=== PATIENT | male | born 2000 | race Two or more races ===

== ENCOUNTER 2025-04-01 13:00 | Emergency (ER) | payer OTHER ==
[~2025-04-01] VITALS: Ht 180.3 cm; Wt 59.0 kg
[2025-04-01] MEDS ORDERED: ONDANSETRON HCL 2 MG/ML VIAL IV ONE (15:30)
[2025-04-01] MEDS ORDERED: KETOROLAC TROMETHAMINE 30 MG VIAL IV ONE (15:30)
[2025-04-01] MEDS ORDERED: ONDANSETRON HCL 2 MG/ML VIAL ONE (15:35)
[2025-04-01] MEDS ORDERED: KETOROLAC TROMETHAMINE 30 MG VIAL ONE (15:35)
[2025-04-01 16:21] LABS: BASO % 0.6 % (0.1-1.2); EOS # 0.09 (0.04-0.54); EOS % 1.1 % (0.7-7.0); LYMPH # 2.39 (1.18-3.74); LYMPH % 29.5 % (19.3-53.1); MEAN PLATELET VOLUME 10.10 fl (9.4-12.4); MONO # 0.53 (0.24-0.82); MONO % 6.5 % (4.7-12.5); NEUT # 5.02 (1.56-6.13); NEUT % 62.1 % (34.0-71.1); RED CELL DISTRIBUTION WIDTH 11.4 % (11.6-14.4)
[2025-04-01 16:26] LABS: URINE APPEARANCE Clear; URINE BILIRRUBIN Negative (NEGATIVE); URINE BLOOD Negative; URINE COLOR Yellow; URINE GLUCOSE Negative (NEGATIVE); URINE KETONE Negative (NEGATIVE); URINE LEUKOCYTE Negative; URINE NITRATE Negative; URINE PROTEIN Negative (NEGATIVE); URINE UROBILINOGEN 1.0 E.U./dl
[2025-04-01 16:29] LABS: URINE WBC 2.7 uL (0.0-23.2)
[2025-04-01 16:36] LABS: URINE BACTERIA 3.6 uL (0.0-1933); URINE CAST 0.00 uL (0.0-1.40); URINE EPITHELIAL CELLS 0.4 uL (0.0-38.8); URINE RBC 0.7 uL (0.0-20.8)
[2025-04-01 16:46] LABS: COVID-19 AG NEGATIVE (NEGATIVE)
[2025-04-01 17:05] LABS: ALT/SGPT 52.0 U/L (12-78); AST/SGOT 22.0 U/L (15-37); BILIRUBIN TOTAL 0.89 mg/dL (0.3-1.2); BUN CREA RATIO 12.0 (7.0-25.0); CREATININE SERUM 1.02 mg/dL (0.70-1.30); GFR 89.73; GLOBULINA 3.8 G/DL (2.4-3.5); GLUCOSE FASTING 93.0 mg/dL (65-100); OSMOLALITY SERUM 281.0 MOSM/KG (275-295)
[2025-04-01] MEDS ORDERED: MIRALAX17 GM PO (17:38)
== END 2025-04-01 18:27 | disposition home or self-care (01) ==
LOC: ER 13:00
PROVIDERS: General Practice
DX: K59.00 Constipation, unspecified (principal); Z20.822 Contact with and (suspected) exposure to COVID-19